=== PATIENT | male | born 1995 | race Caucasian/White ===

== ENCOUNTER 2019-05-20 10:14 | Emergency (ER) | payer OTHER ==
[~2019-05-20] VITALS: Ht 175.3 cm; Wt 104.5 kg
[2019-05-20 11:15] VITALS: BP 130/87
== END 2019-05-20 11:18 | disposition home or self-care (01) ==
LOC: ER 10:19
DX: G51.0 Bell's palsy (principal); M10.9 Gout, unspecified; Z88.0 Allergy status to penicillin
CPT/HCPCS: 99281